=== PATIENT | female | born 1975 | race Caucasian/White ===

== ENCOUNTER 2024-12-31 01:46 | Emergency (ER) | payer OTHER, SELFPAY ==
[2024-12-31 01:50] VITALS: BP 131/78; PULSE 71; TEMP 36.5; O2SAT 100; BMI 27.4
--- NOTE | 2024-12-31 01:59 | ED.SKABFB1 ---
HPI - Skin/Abscess/Foreign Bdy General Chief complaint: Skin/Abscess/Foreign Body Stated complaint: POSS DERMATITIS Time Seen by Provider: 12/31/24 01:56 Source: patient Mode of arrival: walk-in Limitations: no limitations History of Present Illness HPI narrative: presents with urticarial rash. Was seen at Urgent care and prescribed prednisone. States she woke up from sleep with worsening rash. No fever , dyspnea or nausea. now presents to be seen. Has been taking Benadryl also Related Data Home Medications ?Medication ?Instructions ?Recorded ?Confirmed metformin 500 mg tablet,extended 1,000 mg PO BID 12/31/24 12/31/24 release 24 hr prednisone 10 mg tablet mg 12/31/24 Allergies Allergy/AdvReac Type Severity Reaction Status Date / Time latex Allergy Rash Verified 12/31/24 01:56 Review of Systems ROS Status of ROS 10 or more systems reviewed and unremarkable except as noted in history and below PFSH PFSH Social History Little interest or pleasure in doing things: not at all Feeling down, depressed, or hopeless: not at all Exam Constitutional Vital Signs, click to edit/add: Last Vital Signs Temp 97.7 F 12/31/24 01:50 Pulse 71 12/31/24 01:50 Resp 16 12/31/24 01:50 BP 131/78 12/31/24 01:50 Pulse Ox 100 12/31/24 01:50 O2 Del Method Room Air 12/31/24 01:50 Common normals: no apparent distress, average body habitus, oriented x3, no limitations, healthy appearing, alert and well nourished [facility] Common normals: normocephalic and head/scalp atraumatic Eye Common normals: PERRL and EOMs intact bilaterally Respiratory Common normals: normal respiratory effort, no retractions, no use of accessory muscles and clear to auscultation bilaterally Cardio Common normals: regular rate, regular rhythm, S1 normal heart sound and S2 normal heart sound Extremity Common normals: normal to inspection and full ROM Other: urticarial rash on trunk and extremities Neuro Common normals: oriented x3, CN's II-XII intact bilaterally and moves all extremities Psych Appearance: grossly normal Course Vital Signs Vital signs: Vital Signs Temperature 97.7 F 12/31/24 01:50 Pulse Rate 71 12/31/24 01:50 Respiratory Rate 16 12/31/24 01:50 Blood Pressure 131/78 12/31/24 01:50 Pulse Oximetry 100 12/31/24 01:50 Oxygen Delivery Method Room Air 12/31/24 01:50 Temperature 97.7 F 12/31/24 01:50 Pulse Rate 71 12/31/24 01:50 Respiratory Rate 16 12/31/24 01:50 Blood Pressure 131/78 12/31/24 01:50 Pulse Oximetry 100 12/31/24 01:50 Oxygen Delivery Method Room Air 12/31/24 01:50 MDM - Skin/Abscess/Foreign Bdy MDM Narrative Medical decision making narrative: presents with urticarial rash. Diffuse rash. No associated respiratory symptoms. Seen at urgent care and prescribed prednisone which was tapering down. Woke up with rash more diffuse this am. Given injection of Solumedrol IM and a prescription for prednisone 60mg qd. Advised to see her PCP to provide tapering plan of prednisone Discharge Plan Discharge Chief Complaint: Skin/Abscess/Foreign Body Clinical Impression: Urticaria Patient Disposition: Home, Self-Care Prescriptions / Home Meds: No Action metformin 500 mg tablet extended release 24 hr 1,000 mg PO BID prednisone 10 mg tablet Print Language: Vietnamese Instructions: Urticaria (ED) Additional Instructions: follow up with your family doctor within the next 3 days Referrals: Physician,Non-Staff, MD [Primary Care Provider] - 1 week
[2024-12-31] MEDS: METHYLPREDNISOLONE SOD SUCC PF 125 MG/2 ML VIAL IM (02:13)
== END 2024-12-31 02:24 | disposition home or self-care (01) ==
PROVIDERS: Emergency Provider Internal Medicine; PCP Family Medicine
DX: L50.9 Urticaria, unspecified (principal)
CPT/HCPCS: 96372; 99284; J2919

== ENCOUNTER 2025-03-26 06:50 | Outpatient (OUT) | payer OTHER, SELFPAY ==
--- NOTE | 2025-03-26 06:59 | MR_ITS ---
[address] [address] Patient Name: PERLA DRAPER MRN: [id number] date: 1975 Sex: F Assigned Patient Location: MRI Current Patient Location: MRI Accession/Order Number: [id number] Exam Date: 03/26/2025 07:00 Report Date: 03/26/2025 09:00 At the request of: ELLYN MOTA MD Procedure: MR head/brain wo con EXAMINATION: MRI OF THE BRAIN WITHOUT CONTRAST CLINICAL HISTORY: headache R51.9 COMPARISON: None TECHNIQUE: Multiecho, multiplanar imaging of the brain was performed without contrast FINDINGS: No restricted diffusion. Solitary focus of T2 prolongation central stone only noted on the T2 FLAIR images is not reproduced on the T2 images favored to be artifactual. Otherwise the brain parenchyma is unremarkable signal intensity. Ventral and sulci are normal size and configuration for patient's age. No shift midline structure. No basal cisterns are patent. No abnormal GRE signal. Major intracranial intravascular flow voids are preserved. Minor paranasal sinus mucoperiosteal thickening. MR/MR head/brain wo con IMPRESSION: Essentially unremarkable MRI brain performed without contrast. Impression dictated by: Angel Soto M.D. 03/26/2025 9:00 AM Dictation Location: [place] [address] Electronically authenticated by: [id number] Y Date: 03/26/2025 09:00
== END 2025-03-26 06:51 | disposition home or self-care (01) ==
LOC: MRI 06:51
PROVIDERS: PCP Family Medicine; Visit Provider Family Medicine
DX: R51.9 Headache, unspecified (principal); N92.1 Excessive and frequent menstruation with irregular cycle; N95.1 Menopausal and female climacteric states; Z13.29 Encounter for screening for other suspected endocrine disorder
CPT/HCPCS: 36415; 70551; 83001; 84439; 84443

== ENCOUNTER 2025-03-26 06:53 | Outpatient (OUT) | payer OTHER, SELFPAY ==
--- OUTSIDE RECORDS SUMMARY | 2025-03-26 06:56 | XMS_ITS | Clinical Summary ---
Author Organization [facility] Address [address] [place] [address] Care Team Providers Care Center Lead Consultant Name Role Phone Rena Simon MD Primary Care Provider [phone] Fox Mendoza DO Unavailable [phone] Allergies Active Allergy Reactions Criticality Noted Date Comments Latex 10/02/2023 Other Reaction(s): rash Sertraline 10/02/2023 Other Reaction(s): Unknown Reaction Medications montelukast (Singulair) 10 MG tablet Take 10 mg by mouth at bedtime. 3 Active Multiple Vitamins-Minera ls (Centrum Adults) tablet Orally Activ e Trulance tablet tablet Take 1 tablet by mouth in the morning. 3 Active MELATONIN PO Take by mouth. Ac tive azelastine (Astelin) 0.1 % nasal sprayIndication s:Allergic rhinitis due to tree pollen Administer 2 sprays into each nostril in the morning and 2 sprays before bedtime. Use in each nostril as directed. 90 mL 3 4 Active fluticasone (Flonase) 50 MCG/ACT nasal sprayIndication s:Allergic rhinitis due to tree pollen Administer 2 sprays into each nostril Daily Shake gently. Before first use, prime pump. After use, clean tip and replace cap. 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 Irregular menstrual bleeding 12/25/2022 Cyst of ovary 10/23/2012 Encounters Date Type Department Care Team Description 03/10/2025 9:30 AM EDT Office Visit [facility] [address] [phone] Fox Mendoza, Menorrhagia with irregular cycle (Primary Dx); Irregular bleeding; Hx of tubal ligation; Hot flushes, perimenopausal; Thyroid disorder screening 03/10/2025 Travel from Last 3 Months Immunizations Immunization Administration Dates Next Due Tdap 01/08/2015 Family History Medical History Relation Name Comments Diabetes Father Trent Heart disease Father Trent Heart failure Father Trent Hypertension Father Trent Diabetes Mother Lindsey Heart disease Mother Lindsey Hypertension Mother Lindsey Kidney disease Mother Lindsey Relation Name Status Comments Father Trent Mother Lindsey Sister Alive x2 Social History Tobacco Use Types Packs/Day Years Used Date Smoking Tobacco: Never Smokeless Tobacco: Never Tobacco Cessation:Counseling Given: No Alcohol Use Standard Drinks/Week Comments Yes 1 (1 standard drink = 0.6 oz pure alcohol) caffeine intake: 1 cup black tea daily PHQ-2 Answer Date Recorded Patient Health Questionnaire-2 Score 0 11/11/2024 Comments No Sex and Gender Information Value Date Recorded Sex Assigned at Not on file Legal Sex Female 6:54 PM EDT Gender Identity Not on file Sexual Orientation Not on file Last Filed Vital Signs Vital Sign Reading Time Taken Comments Blood Pressure 110/70 03/10/2025 9:45 AM EDT Pulse - - Temperature - - Respiratory Rate - - Oxygen Saturation - - Inhaled Oxygen Concentration - - Weight 75.8 kg (167 lb) 03/10/2025 9:45 AM EDT Height 172.7 cm (5' 8 ) 10/18/2023 9:09 AM EDT Body Mass Index 25.39 10/18/2023 9:09 AM EDT Plan of Treatment Upcoming Encounters Date Type Department Care Team (Late st Contact Info) Description 04/13/2025 11:00 AM EST Ancillary Procedure [facility] [address] [address] 04/13/2025 11:45 AM EST Office Visit [facility] [address] [phone] Fox Mendoza DO [address] [phone] 11/17/2025 1:30 PM EDT Office Visit [facility] [address] [phone] Fox Mendoza DO [address] [facility] D [address] [address] Health Maintenance Due Date Last Done Comments CT Colonography 1975 Colonoscopy 1975 Colorectal Cancer Screening 1975 FIT-DNA 1975 FIT 1975 FOBT 1975 Sigmoidoscopy 1975 HPV/Cotest 2004 Mammogram 05/20/2025 05/20/2024, 12/0 12/2022, 04/25/2018, Additional history exists Cervical Cancer Screening 09/06/2025 Pap Smear 09/06/2025 09/06/2022, 04/02/2019 Influenza Vaccine Completed 03/04/2025, 02/19/2024, 02/24/2023 Procedures Procedure Name Priority Date/Time Associated Diagnosis Comments BI MAMMOGRAM SCREENING TOMOSYNTHESIS BILATERAL Routine 05/20/2024 10:01 AM EST Encounter for screening mammogram for malignant neoplasm of breast THINPREP TIS PAP AND HPV MRNA E6/E7 REFLEX HPV 16,18/45 (10096) Routine 09/06/2022 from Last 3 Months or Most Recently Relevant to Health Maintenance Results * Bilateral screening mammogram with tomosynthesis (05/20/2024 10:01 AM EST) Anatomical Region Laterality Modality Breast Bilateral Mammography 05/20/2024 10:0 1 AM EST Impressions 05/20/2024 10:07 AM EST NO MAMMOGRAPHIC EVIDENCE OF MALIGNANCY. ROUTINE FOLLOW-UP IS RECOMMENDED IN ONE YEAR. RESULT CODE: 2 Benign Findings(s) DENSITY CODE: 3 (approximately 51-75% glandular) FOLLOW UP: 1YR The false-negative rate of mammography is approximately 10-percent. Management of a palpable abnormality must be based on clinical grounds. Patient was entered into a reminder system with a target due date for the next mammogram. Impression dictated by: Kael Ziegler M.D.05/20/2024 10:05 AM Dictation Location: [facility] Transcribed By: [facility] 05/20/24 1005 Dictated By: Kael Ziegler II, MD 05/20/24 1001 Signed By: <Electronically signed by Kael Ziegler II, MD in OV> 05/20/24 1005 Narrative 05/20/2024 10:07 AM EST [facility] [address] [place] [address] [place] [address] Mammography Report Signed Patient: Yvette Garcia MR#: [id number] [birth year] : 1975 Acct:[id number] Age/Sex: 49 / F ADM Date: 05/20/24 Loc: OR Room: Type: [facility] Attending Dr: Referral Self Copies to: MD MARLEY Kerr MONA DO SELF,REFERRAL Ordering Provider: FOX MENDOZA DO Date of Service: 05/20/24 MM/MM screening mammo BI w/CAD: screening CLINICAL DATA: Screening for malignancy. BILATERAL SCREENING MAMMOGRAMS - FULL FIELD DIGITAL WITH TOMOSYNTHESIS AND CAD Tomosynthesis craniocaudal and mediolateral oblique views of both breasts were obtained using low- dose digital technique. Comparison is made to prior studies from 05/17/2023, 05/15/2022, 05/10/2021, and 05/03/2020. This examination was reviewed with the aid of CAD. The breast parenchyma is heterogeneously dense. Benign-appearing calcifications are present. There are no dominant masses, typically malignant calcifications or architectural distortion. There has been no significant interval change. MM/MM screening mammo BI w/CAD Procedure Note Kael Ziegler MD - 05/20/2024 [facility] [address] [place] [address] [place] [address] Mammography Report Signed Patient: Yvette Garcia KMR#: [id number] [birth year] : 1975Acct:[id number] Age/Sex: 49 / FADM Date: 05/20/24 Loc: OR Room:Type: [facility] Attending Dr: Referral Self Copies to: MD MARLEY Kerr MONA DO SELF,REFERRAL Ordering Provider: FOX MENDOZA DO Date of Service: 05/20/24 MM/MM screening mammo BI w/CAD: screening CLINICAL DATA: Screening for malignancy. BILATERAL SCREENING MAMMOGRAMS - FULL FIELD DIGITAL WITH TOMOSYNTHESIS ANDCAD Tomosynthesis craniocaudal and mediolateral oblique views of both breastswere obtained using low- dose digital technique. Comparison is made to prior studies from05/17/2023, 05/15/2022, 05/10/2021, and 05/03/2020. This examination was reviewed with the aid of CAD. The breast parenchyma is heterogeneously dense. Benign-appearingcalcifications are present. There are no dominant masses, typically malignant calcifications orarchitectural distortion. There has been no significant interval change. MM/MM screening mammo BI w/CAD IMPRESSION: NO MAMMOGRAPHIC EVIDENCE OF MALIGNANCY. ROUTINE FOLLOW-UP IS RECOMMENDED IN ONE YEAR. RESULT CODE: 2 Benign Findings(s) DENSITY CODE: 3 (approximately 51-75% glandular) FOLLOW UP: 1YR The false-negative rate of mammography is approximately 10-percent. Management of a palpable abnormality must be based on clinical grounds. Patient was entered into a reminder system with a target due date for thenext mammogram. Impression dictated by: Kael Ziegler M.D.05/20/2024 10:05 AM Dictation Location: [facility] Transcribed By: [facility] 05/20/24 1005 Dictated By: Kael Ziegler II, MD 05/20/24 1001 Signed By: <Electronically signed by Kael Ziegler II, MD inOV> 05/20/24 1005 Fox Tuckeraprcamille DO IMG BI PROCEDURES Final Re sult * THINPREP TIS PAP AND HPV MRNA E6/E7 REFLEX HPV 16,18/45 (66904) (09/06/2022) CLINICAL INFORMATION: None given [facility] LMP: N/A [facility] PRE[facility]. PAP: N/A [facility] PRE[facility]. BX: N/A [facility] SOURCE: Endo/Ectocervix [facility] STATEMENT OF ADEQUACY: SEE COMMENT [facility] Comment: Satisfactory for evaluation. Endocervical/transformation zone component present. INTERPRETATION/R ESULT: Negative for intraepithelial lesion or malignancy. [facility] COMMENT: This Pap test has been evaluated with computer assisted technology. [facility] PROSTHETIST : SEE COMMENT [facility] Comment: [facility] [place], [place](ASCP) CT Screening Location: [place] [address] COMMENT SEE COMMENT [facility] Comment: EXPLANATORY NOTE: The Pap is a screening test for cervical cancer. It is not a diagnostic test and is subject to false negative and false positive results. It is most reliable when a satisfactory sample, regularly obtained, is submitted with relevant clinical findings and history, and when the Pap result is evaluated along with historic and current clinical information. HPV MRNA E6/E7 Not Detected Not Detected [facility] Comment: Methodology: [employer]-Mediated Amplification This assay detects E6/E7 viral messenger RNA (mRNA) from 14 high-risk HPV types (16,18,31,33,35,39,45,51,52,56,58,59,66,68). Cervical sources are required for HPV testing. If a vaginal source from a patient who has had a total hysterectomy with removal of cervix was submitted, please contact the testing laboratory for alternative testing options. For additional information, please refer to http://education.Zipongo.com/faq/SJY153z9 (This link if provided for information/ educational purposes only.) 09/06/2022 Fox Mendoza DO [facility] Final Resu lt [facility] from Last 3 Months or Most Recently Relevant to Health Maintenance Insurance [employer] Care Teams Center Lead Consultant Relationship Specialty Start Date End Date Rena Simon MD [address] [place] [phone] PCP - General Family Medicine 11/11/24 Fox Mendoza DO [address] [place], [place] [address]alex Saavedra. [facility] D [address] [phone] Referring Physician Obstetrics and Gynecology 11/11/24
--- OUTSIDE RECORDS SUMMARY | 2025-03-26 06:56 | XMS_ITS | Clinical Summary ---
Author Organization [facility] Address [address], [address] [place] [address] Care Team Providers Care Java Designer Name Role Phone Marciano Holly DO Primary Care Provider [phone] Social History Tobacco Use Types Packs/Day Years Used Date Smoking Tobacco: Never Assessed Comments Unknown Sex and Gender Information Value Date Recorded Sex Assigned at Not on file Legal Sex Female 8:47 PM EST Gender Identity Not on file Sexual Orientation Not on file Plan of Treatment Not on file Care Teams Java Designer Relationship Specialty Start Date End Date Marciano Holly DO PCP - General 09/16/15
--- OUTSIDE RECORDS SUMMARY | 2025-03-26 06:56 | XMS_ITS | Encounter Summary ---
Author Organization [facility] Address [address] [place] [address] Care Team Providers Care Sandwich Maker Name Role Phone Rena Simon MD Primary Care Provider [phone] Rena Simon MD Primary Care Provider [phone] Coni Mendoza DO Unavailable [phone] Encounter Details Date Type Department Care Team (Late st Contact Info) Description 05/17/2023 Orders Only [facility] [address] [place] [phone] Coni Mendoza DO [address] [phone] Social History Tobacco Use Types Packs/Day Years Used Date Smoking Tobacco: Never Smokeless Tobacco: Never Alcohol Use Standard Drinks/Week Comments Yes 1 (1 standard drink = 0.6 oz pure alcohol) caffeine intake: 1 cup black tea daily Comments Unknown Sex and Gender Information Value Date Recorded Sex Assigned at Not on file Legal Sex Female 6:54 PM EDT Gender Identity Not on file Sexual Orientation Not on file documented as of this encounter Plan of Treatment Upcoming Encounters Date Type Department Care Team (Late st Contact Info) Description 04/13/2025 11:00 AM EST Ancillary Procedure [facility] [address] [place] [address] [address] 04/13/2025 11:45 AM EST Office Visit [facility] [address] [address] Coni Mendoza DO [address] [phone] 11/17/2025 1:30 PM EDT Office Visit [facility] [address] [address] Coni Mendoza DO [address] [facility] D [address] [phone] documented as of this encounter Procedures Procedure Name Priority Date/Time Associated Diagnosis Comments MAMMOGRAM-DIAGNOSTIC* Routine 05/17/2023 2:04 PM EST documented in this encounter Results * MAMMOGRAM-DIAGNOSTIC* (05/17/2023 2:04 PM EST) Anatomical Region Laterality Modality Radiographic Abby ging Coni Mendoza DO IMG XR PROCEDURES Final Re sult documented in this encounter Visit Diagnoses Not on filedocumented in this encounter Care Teams Sandwich Maker Relationship Specialty Start Date End Date Rena Simon MD PCP - General Family Medicine 11/15/22 11/10/24 Rena Simon MD [address] [place] [phone] PCP - General Family Medicine 11/11/24 Coni Mendoza DO [address] [address] Referring Physician Obstetrics and Gynecology 11/11/24 documented as of this encounter
[2025-03-26 09:38] LABS: Thyroid Stimulating Hormone 1.906 uIU/mL (0.358-3.740)
[2025-03-27 08:09] LABS: FSH 30.6 mIU/mL (.)
== END 2025-03-26 06:54 | disposition home or self-care (01) ==
LOC: LAB 06:54
PROVIDERS: PCP Family Medicine; Visit Provider Obstetrics & Gynecology
DX: N92.1 Excessive and frequent menstruation with irregular cycle (principal); N95.1 Menopausal and female climacteric states; Z13.29 Encounter for screening for other suspected endocrine disorder
CPT/HCPCS: 36415; 83001; 84439; 84443

== ENCOUNTER 2025-05-09 16:58 | Emergency (ER) | payer OTHER, SELFPAY ==
--- OUTSIDE RECORDS SUMMARY | 2025-04-13 11:45 | XMS_ITS | Encounter Summary ---
Author Organization [facility] Address [address] [place] [address] Care Team Providers Care Bottle Line Worker Name Role Phone Rena Simon MD Primary Care Provider [phone] Coni Mendoza DO Unavailable [phone] Reason for Visit * ReasonCommentsFollow-upPatient here for a f/up after pelvic U/S d/t heavy periods. LMP 03/19/25 Encounter Details DateTypeDepartmentCare Team (Latest Contact Info)Agdnfhocduf59/03/2025 11:45 AM ESTOffice Visit [facility] [address] [place] [address] [phone] Coni Mendoza DO [address] [address] Encounter to discuss test results (Primary Dx); Menorrhagia with irregular cycle; Uterine leiomyoma, unspecified location; Cysts of both ovaries; Hx of tubal ligation Social History Tobacco UseTypesPacks/DayYears UsedDateSmoking Tobacco: NeverSmokeless Tobacco: NeverAlcohol UseStandard Drinks/WeekCommentsYes1 (1 standard drink = 0.6 oz pure alcohol)caffeine intake: 1 cup black tea dailyPHQ-2AnswerDate RecordedPatient Health Questionnaire-2 [id number] and Gender InformationValueDate RecordedSex Assigned at BirthNot on fileLegal SexFemale 08/23/2022 6:54 PM EDTGender IdentityNot on fileSexual OrientationNot on file documented as of this encounter Last Filed Vital Signs Vital SignReadingTime TakenCommentsBlood Zvznzkys874/7204/13/2025 11:38 AM EST Pulse--Temperature--Respiratory Rate--Oxygen Saturation--Inhaled Oxygen Concentration--Sgiecn95.7 kg (169 lb)04/13/2025 11:38 AM ESTHeight--Body Mass Index25.7010/18/2023 9:09 AM EDTdocumented in this encounter Progress Notes * Coni Mendoza, DO - 04/13/2025 11:45 AM EST Images from the original note were not included. Subjective Yvette Garcia is a 49 y.o. female HPI Chief Complaint Patient presents with Follow-up Patient here for a f/up after pelvic U/S d/t heavy periods. LMP 03/19/25 Pelvic ultrasound revealed: Measurements: Uterus: 9.3 x 4.3 x 6.1 cm Volume: 129.4 cm?? Endometrial thickness: 10.8 mm Right ovary: 2.6 x 2.3 x 2.3 cm Volume: 7.2 cm?? Left ovary: 4.2 x 3.0 x 2.3 cm Volume: 15.3 cm?? Findings: Uterus: The uterus is normal in size and contour with the exception of c/section scar. Position: Anterverted Myometrium: The myometrium is rather inhomogenous in echotexture. Fibroid(s): There is a single subserosal, right, posterior, heterogenous fibroid visualized measuring 2.2 x 1.9 x 2.4 cm. Endometrium: The endometrium appears normal in contour and thickness. Cervix: The cervix appears unremarkable. Right ovary: Visualized Morphology: normal appearing Cyst(s): The right ovary contains a single thin-walled, sonolucent cyst, measuring 1.8 x 1.8 x 1.7 cm. Doppler: power doppler shows ovarian blood profusion Right adnexa: no overt adnexal mass Left ovary: Visualized Morphology: normal appearing Cyst(s): The left ovary contains a single thin-walled, sonolucent cyst, measuring 2.6 x 1.7 x 1.9 cm. Doppler: power doppler shows ovarian blood profusion Left adnexa: no overt adnexal mass [place]: no free fluid Medical History[1] Surgical History[2] Family History[3] Social History[4] OB History Para Term AB Living 3 2 1 2 SAB IAB Ectopic Multiple Live Births 1 # Outcome Date GA Lbr Eris/2nd Weight Sex Type Anes PTL Lv 3 SAB 2 Para 1 Para Allergies[5] Medications Ordered Prior to Encounter[6] Review of Systems All other systems reviewed and are negative. Objective BP 116/72 Wt 169 lb LMP 03/19/2025 BMI 25.70 kg/m?? Physical Exam Constitutional: Appearance: Normal appearance. Neurological: Mental Status: She is alert. Skin: General: Skin is warm and dry. Psychiatric: Mood and Affect: Mood normal. Assessment/Plan 1. Encounter to discuss test results (Primary) Discussed pelvic ultrasound findings. Discussed normal Thyroid stimulating hormone level and darling-menopausal/early menopausal level of FSH. Reassured patient 2. Menorrhagia with irregular cycle Treatment/management options. Patient opted to continue observation at this time. Patient to contact the office with any concerns/questions 3. Uterine leiomyoma, unspecified location 4. Cysts of both ovaries 5. Hx of tubal ligation [1] Past Medical History: Diagnosis Date Allergic rhinitis Breast lump COVID-19 Eczema Encounter for insertion of Mirena IUD 05/19/2015 Fibrocystic breast Head injury 09/2023 fell and hit head on the back- 6 kailyn was inserted History of colonoscopy 2016 negative biopsy History of medical problems enlongated colon Hives Ovarian cyst PONV (postoperative nausea and vomiting) [id number] C section Sinusitis 1989 [2] Past Surgical History: Procedure Laterality Date SECTION, LOW TRANSVERSE x2 (2001, 2005) COLON SURGERY 2016 COLONOSCOPY 2016 ENDOMETRIAL BIOPSY 03/16/2015 Normal EYE SURGERY 2010 IUD INSERTION 05/19/2015 Mirena Insertion TUBAL LIGATION 2005 [3] Family History Problem Relation Name Age of Onset Diabetes Mother Lindsey Hypertension Mother Lindsey Heart disease Mother Lindsey Kidney disease Mother Lindsey Diabetes Father Trent Hypertension Father Trent Heart failure Father Trent Heart disease Father Trent [4] Social History Tobacco Use Smoking status: Never Smokeless tobacco: Never Vaping Use Vaping status: Never Used Substance Use Topics Alcohol use: Yes Alcohol/week: 1.0 standard drink of alcohol Types: 1 Glasses of wine per week Comment: caffeine intake: 1 cup black tea daily Drug use: Not Currently [5] Allergies Allergen Reactions Latex Other Reaction(s): rash Sertraline Other Reaction(s): Unknown Reaction [6] Current Outpatient Medications on File Prior to Visit Medication Sig Dispense Refill azelastine (Astelin) 0.1 % nasal spray Administer 2 sprays into each nostril in the morning and 2 sprays before bedtime. Use in each nostril as directed. 90 mL 3 buPROPion SR (Wellbutrin SR) 100 MG 12 hr tablet TAKE 1 TABLET BY MOUTH TWICE DAILY (titrate TO TWICE DAILY DIRECTED) fluticasone (Flonase) 50 MCG/ACT nasal spray Administer 2 sprays into each nostril Daily Shake gently. Before first use, prime pump. After use, clean tip and replace cap. 48 g 11 GENERIC EXTERNAL MEDICATION Insert 1 suppository into the vagina every 3rd (third) day MELATONIN PO Take by mouth. montelukast (Singulair) 10 MG tablet Take 10 mg by mouth at bedtime. Multiple Vitamins-Minerals (Centrum Adults) tablet Orally Trulance tablet tablet Take 1 tablet by mouth in the morning. No current facility-administered medications on file prior to visit. documented in this encounter Plan of Treatment DateTypeDepartmentCare Team (Latest Contact Info)Cvprjlrwwwz95/01/2025 10:30 AM ESTOffice Visit [facility] [address] [facility] [address] [phone] Coni Mendoza DO [address] [facility] D [address] [phone] 11/17/2025 1:30 PM EDTOffice Visit [facility]OM[facility] [address] [facility] D [address] [phone] Coni Mendoza DO [address] [phone] documented as of this encounter Visit Diagnoses Diagnosis Encounter to discuss test results- Primary Other specified counseling Menorrhagia with irregular cycle Uterine leiomyoma, unspecified location Cysts of both ovaries Other and unspecified ovarian cyst Hx of tubal ligation documented in this encounter Care Teams Team MemberRelationshipSpecialtyStart DateEnd Date Rena Simon MD [address] [place] [phone] PCP - GeneralFamily Medicine11/11/24 Coni Mendoza DO [address] [phone] Referring PhysicianObstetrics and Gynecology11/11/24documented as of this encounter
--- OUTSIDE RECORDS SUMMARY | 2025-05-06 09:09 | XMS_ITS | Continuity of Care Document ---
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 Phone Rena Simon MD Primary Care Provider Viji Yang APRN Attending Provider Rena Simon MD Attending Provider [phone] Coni Mendoza DO Attending Provider Care Teams Patient Care Team Team Status: Active Member Role/Relationship Status Dates Rena Simon MD Primary Care Provider Active Visit Care Team Team Status: Inactive Member Role/Relationship Status Dates Rena Simon MD Primary Care Provider Active Start: February 12, 2025 End: February 12, 2025Amy Marshall ProviderActiveStart: February 12, 2025 End: February 12, 2025 Visit Care Team Team Status: Inactive Member Role/Relationship Status Dates Rena Simon MD Primary Care Provider Active Start: February 17, 2025 End: February 17, 2025Richelle Kerr ProviderActiveStart: February 17, 2025 End: February 17, 2025 Visit Care Team Team Status: Active Member Role/Relationship Status Dates Rena Simon MD Primary Care Provider Active Start: March 26, 2025 Coni Mendoza DOAttraymond ProviderActiveStart: March 26, 2025 Visit Care Team Team Status: Inactive Member Role/Relationship Status Dates Rena Simon MD Primary Care Provider Active Start: May 05, 2025 End: May 05, 2025Viji Normantimbo CRISTYUnapeggypro ProviderActiveStart: May 05, 2025 End: May 05, 2025 Patient Care Team Team Status: Inactive Member Role/Relationship Status Dates Rena Simon MD Primary Care Provider Active Start: May 06, 2025 End: May 06, 2025Rena Simon MDAttraymond ProviderActiveStart: May 06, 2025 End: May 06, 2025 Chief Complaint and Reason for Visit Chief Complaint Admit Date WMN f/u February 12, 2025 8:39am Headache/Congestion/COVID- February 1:25pm abscess May 06, 2025 1:34pm Reason for Visit Admit Date BMI 27.0-27.9,adult February 12, 2025 8:39am Dietary counseling and surveillance Feb 8:39am Hyperlipidemia, unspecified February 8:39am IBS (irritable bowel syndrome) February 12, 2025 8:39am Obesity February 12, 2025 8:39am PCOS (polycystic ovarian syndrome) 2024 8:39am Vitamin D deficiency, unspecified 2024 8:39am Sinusitis, acute maxillary February 1:25pm BMI 27.0-27.9,adult May 05, 2025 1:37pm Dietary counseling and surveillance [facility]2024 1:37pm Hyperlipidemia, unspecified April 1:37pm IBS (irritable bowel syndrome) May 05, 2025 1:37pm Obesity May 05, 2025 1:37pm PCOS (polycystic ovarian syndrome) Novem 2024 1:37pm Vitamin D deficiency, unspecified [facility] 1:37[facility] Allergies, Adverse Reactions, Alerts Allergen Type Severity Reaction Last Updated Verified Status latex Allergy Unknown rash May 06, 2025 1:39pm Yes Active Social History Smoking Status Status Start Date End Date Date of Observa tion Never smoked tobacco (finding) September 09, 2024 8:31am Observation Status Observation Response Date of Response Legal Sex Female (finding) Sex Assigned At BirthFemaleNovember 1974 Family History Relationship Condition Age at Onset Recorded Date/[place] father Family history of other condition Unknown Diabetes mellitusUnknownDeceasedUnknownHypertensionUnknownHeart diseaseUnknown Myocardial infarctionUnknownmotherHypertensionUnknownDeceasedUnknownDiabetes mellitusUnknownHeart diseaseUnknown Problems Active Problems Problem Diagnosis/Recorded Date Onset Date Stat us Screening for colon cancer February 19, 2024 8:18am Unknown Active Varicose veins of bilateral lower extremities with other complications May 20, 2024 11:04am Unknown Active Sinusitis, acute maxillary February 23, 2025 12:07p m Unknown Active Dietary counseling and surveillance September 09, 2024 7: 32am Unknown Active Cough August 26, 2024 9:31am Unknown Acti ve Wellness examination February 19, 2024 3:50pm Unkno wn Active Headache March 09, 2025 7:28am Unknown Active Hyperlipidemia, unspecified September 09, 2024 7:33am Unk nown Active Nasal congestion August 08, 2024 3:04pm Unknown Active PCOS (polycystic ovarian syndrome) February 12, 2025 8:44am Unknown Active BMI 27.0-27.9,adult September 09, 2024 7:32am Unknown Active Vitamin D deficiency, unspecified October 01, 2023 11: 52am Unknown Active IBS (irritable bowel syndrome) October 01, 2023 11:52a m Unknown Active Obesity February 12, 2025 8:45am Unknown A ctive Inactive/Resolved Problems Problem Diagnosis/Recorded Date Onset Date Stat Ankle sprain September 22, 2023 8:55am Unknown Reso lved Influenza A August 08, 2024 3:07pm Unknown R esolved Laceration September 22, 2023 8:55am Unknown Reso lved Removal of kailyn October 02, 2023 9:12am Unknown Resolved Viral URI July 25, 2024 11:07am Unknown Resolved Medications Medication Status Dose Units Route Directions Qty Days Refills S tart Date Stop Date End Date Reason(s) Instructions Adherence Meloxicam 7.5 mg tablet Discontinued 7.5 MG PO Lesy ly 30 2March 2023 12:00amMarch 2023 3:56pmMeloxicam 7.5 mg tablet Discontinued0.ROUTE.QQPYKZM025Slbyg 2023 3:55pmFebruary 2024 2:29pm TAKE 1 TABLET BY MOUTH ONCE DAILYPlecanatide (Trulance) 3 mg tabletDiscontinued3 ZBNUQxoir977Vizotdtf 25th, 2024 4:44pmNovember 2023 4:44pmPlecanatide (Trulance) 3 mg blzyfsZiviwlapaxye4TDQWUrwoq383Tzoiijdm 25th, 2024 4:44pmApril 2024 2:29pmMontelukast 10 mg tabletActive0.ROUTE.CONVYHX152Jwrqkrwj 2024 10:22amTAKE 1 TABLET BY MOUTH ONCE DAILY at bedtimeComplies with drug therapyAmoxicillin-Pot Clavulanate 875-125 mg hlgvkzZarqdyzfeovd6ZAWPMTvvgs noiok822Uftov 2024 11:00pmApril 2024 7:22amPlecanatide (Trulance) 3 mg hjjhadMwrttupfxeqy7ZXDVSmhtj978Qkmip 2024 2:29pmAugust 2024 7:20amPlecanatide (Trulance) 3 mg llgslhBnxopy2DKZHLprst040Vbhszq 2024 7:20amComplies with drug therapyMontelukast 10 mg utevweZxflvfczosjf46INLUZjbbu September 21, 2023 11:00pmFebruary 2024 10:22amPlecanatide (Trulance) 3 mg xttorqJqlktzqwwlzd6SSPFFshcmJrevf 2023 11:00pm[facility]20[facility] 4:44pm Bupropion Hcl 150 mg tablet extended release 24 wlOknbnp378XNFXFnfgh lgpcyye641 May 05, 2025 12:00amComplies with drug therapyAmoxicillin-Pot Clavulanate 875-125 mg hlertgXyvuvqcxwntu7KARZHKhanp hctqt469Xxpttcyes 8th, 2025 11:00pm May 06, 2025 1:39pmFluticasone Propionate (Flonase Allergy Relief) 50 mcg/actuation spray,egniiegsxpVabhhd6GUDOZAKUNCDBSPHGedlxKiiaoezy 28th, 2025 12:00amadminister into each nostrilComplies with drug therapyOseltamivir (Tamiflu) 75 mg mfnbgnpYecfgjdhhoyp32GHZKIhvsw eedzn5386Uxsdcmno 2024 12:00amMarch 2024 3:20pmMelatonin-Pyridoxine (Vit B6) 5-1 mg tablet DiscontinuedTABPOMarch 2024 11:00pmApril 2024 7:23amFreeTextSi tabs at HS Orally Once a day; Note: Source Status: Taking; Provider: Aurora Chase ( )Lactobacillus Combination No.9 (Adult 50 Plus Probiotic) 4 billion cell rhfolygVohomj5803TUR CELLSPODailyMarch 2024 11:00pm administer with a mealComplies with drug therapyMetformin 500 mg tablet extended release 24 wsUeybqibhosus1689AOIPTtpos izwxo2668Xdq 19th, 2025 11:00pmJuly 2024 1:02pmMetformin 500 mg tablet extended release 24 ijOxftffaxjjjg3281FCIL Twice evgzd7219Cson2024 1:02pmSept2024 8:47amBupropion Hcl 100 mg tablet sustained-release 12 oiFptotaflfeql213ASMPDqiui yowfk407Rvkimbmie 3rd, 2025 11:00pmNov2024 2:25pmtitrate to twice daily as instructed Metformin 500 mg tablet extended release 24 dxTwosbs2561RLVYXlwjg muqqr2780 February 12, 2025 8:47amComplies with drug therapyPrednisone 10 mg tablet Zxrsjqujfiyr26UDRUTj Eemarbxa984Ffew 2024 11:00pmSept2024 7:51amsee taper instructions 60mg daily for three days, 40mg daily for three days, 20mg daily for three days, 10mg daily for three daysAmoxicillin-Pot Clavulanate 875-125 mg tablet Pijfedcdsiop8RWYLQVhhfa qslzh537EscjyramMay 06, 2025 2:04pmNovember 2024 2:05pmSulfamethoxazole-Trimethoprim 800-160 mg fzcjvuTpzdpnxwruim9JOHCCOguhu vqifl248XwavomcsMay 06, 2025 12:00amNovember 26th, 2025 2:05pmAmoxicillin-Pot Clavulanate 875-125 mg rpgatmZtiyii8ZZSSYLfxxn emkcp743Suklvted 26th, 2025 2:05pmComplies with drug therapySulfamethoxazole-Trimethoprim 800-160 mg tablet Eluxzz4JAZKNTbiub yupdo613Zzrwnhrv 26th, 2025 2:05pmComplies with drug therapy Immunizations Immunization Event Date Not Given Reason Dose Number Metal Base Blocker Lot Number Reason(s) Given Vaccine Information Statement (VIS) Detail Administration Location [place] [id number] ([facility]) June 14, 2021 Influenza, seasonal, injectable, pfSeptember [id number] [facility] Relevant Diagnostic Tests and/or Laboratory Data Laboratory Results Test Collection Date/Time Result Date/Time Result Interpretation Reference Range Result Comment Performing Site Bedside Hemoglobin A1c February 12, 2025 9:02am Sept ember 2024 9:03am 5.2 % Follicle Stimulating HormoneOct2024 6:44amOctober 2024 6:44am 30.6 mIU/mL.Adult Female Range Follicular phase 3.5 - 12.5 Ovulation phase 4.7 - 21.5 Luteal phase 1.7 - 7.7 Postmenopausal 25.8 - 134.8Performed at: - [facility] [id number] Director: Jorge Lynn PhD, Phone: [phone] ThyroxineOct2024 6:44amOctober 2024 6:44am0.97 ng/dL0.76-1.46Thyroid Stimulating Hormone 3rd GenOctober 2024 6:44amOctober 2024 6:44am1.906 u[iU]/mL0.358-3.740 Vital Signs Vital Reading Result Reference Range Collection Date/Time Height 66.1 [in_i] February 12, 2025 7:88ywUnaawl13.35 kgSeptember 2024 7:47amHeart Rate75 /kzq82-849Bmpgxwiya 4th, 2025 7:47amRespiratory rate18 /xaa82-57Jrdikvrig 4th, 2025 7:47amOxygen saturation by Pulse jkaowiij60 %95-100Sept2024 7:47amBP Ssszwlmz761 mm[Hg]100-140September 2024 7:47amBP Cepkbsofm21 mm[Hg]60-100Sept2024 7:47amBMI (Body Mass Index)27.1 kg/c4Xkrsvkbnz 2024 7:07ljWxfjjt84.5 [in_i]February 17, 2025 12:18hkUczvam06.65 kg February 17, 2025 12:28pmBody Ahzsjgcwvyq31.8 [degF]97.6-99.0Sept2024 12:28pmHeart Rate99 /lgf83-443Valqtrknp 9th, 2025 12:28pmBP Vnkmvggh30 mm[Hg]100-140Sept2024 12:28pmBP Tfuvqxbgv89 mm[Hg]60-100September 2024 12:28pmBMI (Body Mass Index)26.9 kg/k6Dmalpdykn 2024 12:28pm Iyctbp83.26 [in_i]May 05, 2025 1:79xqVnbmxm70.55 kgNov2024 1:39pmHeart Rate94 /jng05-496LkexkfebMay 05, 2025 1:39pmRespiratory rate18 /min 12-24May 05, 2025 1:39pmOxygen saturation by Pulse bywcnevf60 %95-100 May 05, 2025 1:39pmBP Zkfwfhhu133 mm[Hg]100-140Nov2024 1:39pm BP Iwzerygrt52 mm[Hg]60-100Nov2024 1:39pmBMI (Body Mass Index)26.3 kg/g4AudcxukdMay 05, 2025 1:53ugOstfru37.26 [in_i]May 06, 2025 1:39pm Zcxffk13.57 kgNov2024 1:39pmHeart Rate94 /gcz42-176EnsgibynMay 06, 2025 1:39pmRespiratory rate12 /prp23-12Iolaaneh2024 1:39pmOxygen saturation by Pulse %95-100May 06, 2025 1:39pmBMI (Body Mass Index)25.6 kg/t6YxebyhrrMay 06, 2025 1:39pm Advance Directives Advance Directive Response Recorded Date/ Time Advance Directives No October 30 1:33pm Insurance Providers Guarantor Yvette Garcia Address [address] [id number] Info.Home Phone: Coverage Status Update:2024 Payer Group Member ID Coverage Type Subscriber Relationship to Subscriber Effective Date Expiration Date [facility] [place] [facility] [place] [id number] - FAM Id: [id number] K Lucius Id: [id number] [address] [place] [address] [place] [id number] Home Phone: Email: [email or web address] Encounter Location(s) Arrival/Admit Date Discharge/Departure Date Discharge/Departure Disposition Provider(s) Departed Physician/ Provider Office Visit -[facility] February 12, 2025 8:39am February 12, 2025 9:40am Discharged to home care or self care (routine discharge) Viji Yang APRN Departed Physician/ Provider Office Visit -[facility] February 17, 2025 1:25pm February 17, 2025 1:54pm Discharged to home care or self care (routine discharge) Rena Simon MD Non-patient / Non-visit -[facility] 2024 7:44am NIKA Mooreeparted Physician/Provider Office Visit-[facility] 2024 1:37pmMay 05, 2025 2:15pmDischarged to home care or self care (routine discharge)PATSY Marshalleparted Physician/Provider Office Visit-[facility] 2024 1:34pmNov2024 2:08pmDischarged to home care or self care (routine discharge)Rena Simon MD Recent Diagnosis Onset Date Admit Date BMI 27.0-27.9,adult Unknown February 8:39am Dietary counseling and surveillance Unknown February 12, 2025 8:39am Hyperlipidemia, unspecified Unknown Feb 8:39am IBS (irritable bowel syndrome) Unknown , 2025 8:39am Obesity Unknown February 12, 2 025 8:39am PCOS (polycystic ovarian syndrome) Unknown February 12, 2025 8:39am Vitamin D deficiency, unspecified Unknown February 12, 2025 8:39am Sinusitis, acute maxillary Unknown Septe mber 2024 1:25pm BMI 27.0-27.9,adult Unknown April 1:37pm Dietary counseling and surveillance Unknown May 05, 2025 1:37pm Hyperlipidemia, unspecified Unknown Nove mb2024 1:37pm IBS (irritable bowel syndrome) Unknown N ov2024 1:37pm Obesity Unknown May 05, 025 1:37pm PCOS (polycystic ovarian syndrome) Unknown May 05, 2025 1:37pm Vitamin D deficiency, unspecified Unknown May 05, 2025 1:37pm Assessments Diagnosis Onset Date Resolution Status Admit Date BMI 27.0-27.9,adult acuteSept2024 8:39amDietary counseling and surveillanceacuteSept2024 8:39amHyperlipidemia, unspecifiedacuteSeptember 2024 8:39amIBS (irritable bowel syndrome)acuteSept2024 8:39amObesityacuteSeptember 2024 8:39amPCOS (polycystic ovarian syndrome)acuteSept2024 8:39amVitamin D deficiency, unspecifiedacuteSeptember 2024 8:39amSinusitis, acute maxillaryacuteSeptember 2024 1:25pmBMI 27.0-27.9,adultacuteNov2024 1:37pmDietary counseling and surveillanceacuteNov2024 1:37pmHyperlipidemia, unspecifiedacuteNovember 2024 1:37pmIBS (irritable bowel syndrome)acuteNov2024 1:37pmObesityacuteNovember 2024 1:37pmPCOS (polycystic ovarian syndrome)acuteNov2024 1:37pmVitamin D deficiency, unspecifiedacuteNov2024 1:37pm Plan of Treatment Author Viji Yang [facility]2024 2:45pm05/05/2025 presents for weight management follow-up. Reports nutritional effort has been fair since last visit following healthy nutritional changes. Exercise weightlifting and treadmill 2 times per week. Was taking bupropion 100 mg twice daily, sometimes forgetting p.m. dose, she was not clear if it was helping. She felt at times she became more hungry on the medication, when further discussed she was not clear if this was a component of some increased hunger. Denied any side effects. Inquires regarding some facial redness. She mentions lupus and wondered if it could be a component Would like staff to be aware of current DARLING discomfort, seeing primary care tomorrow, [facility] could not get her in till next week. Encouraged if precipitous is worsening ER may be of benefit. Encouraged clean warm soapy bath. 02/12/2025 returns for weight management follow-up. Feels her nutritional estimate is fair since her last visit. She is not logging. She is complaining of stress eating. She is exercising weightlifting treadmill spin or bike or Pilates at least 2 times per week. She is exerting herself. Body composition shows improvement in skeletal muscle mass since September as well as decrease in fat mass although her weight is only down 0.1 pounds. She is having her menstrual cycle today. She is having menses approximately every 3 weeks at this point. She has follow-up with [facility]MENT SPECIAL[facility]. She did have an ophthalmic appointment there were concern for retinal hemorrhage and wanted to rule out diabetes and hypertensive component. Her blood pressure for me today is good. We did do hemoglobin A1c based on verbal history of cystic ovaries on CT that was 5.2% on metformin 1000 mg twice daily this was prescribed for weight management. She is interested in bupropion we will start her on sustained-release version titrating to twice daily and then will do extended release version if this is helpful upon follow- up. 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 She is not interested in injectable medication Her mood today is is good 09/09/2024 presents for initial weight management visit as a 49-year-old female patient of Dr. Rena Simon. Presents for weight management assistance. 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 She feels her weight issues began at age 10. She does report history of eating disorder, she does not elaborate. She reports being overweight at a young age. Her high school graduation weight was 160 pounds her highest non weight 200 pounds. She reports having significant weight loss in 2001 after a using weight watchers she was down to 145 251 pounds. She slowly gained weight after stopping weight watchers. She presents today 871 pounds BMI of 27.5. Does exercise 2-3 times per week on the treadmill and spent a break. She has struggles with her weight related to binge, boredom eating and constant food thoughts and cravings or family weight issues. Her goals for weight management are to increase her energy, feel more confident in her clothing. She lives with her and 19-year-old son, she has a daughter 23 moved out last summer. She does report for heart intermittent palpitations, some anxiety when she is busy at work. Denies chest pain. Reports family history of diabetes, early CVD to her best recollection in her father. She is a non-smoker, she does drink alcohol once per week 1 or 2 drinks. She denies any personal or family history of drug or alcohol addiction. She reports her menses to be regular and normal, she feels that she is close to or in perimenopause. She is not taken medications for weight loss in the past. She is amenable if all if anything is appropriate for her. She is looking for accountability in her program. Her previously participated with Dr. Vann. Had community labs A1c in April 5.6% Highest Weight: 200 lbs Program Starting Date/Weight: 09/09/2024 / 171.0 lbs BMI 27.5 Comorbid hyperlipidemia with high HDL. Perimenopause- Dr Newberry-- seeing next month Current Weight: 164.4 lbs, BMI 35.6 +/-: Down 3.9 lbs since last visit, down 6.6 lbs, down 35.6 high weight. Notable skeletal muscle improvement and fat mass reduction since September, report available upon request equivocal reduction in skeletal muscle mass Baseline body comp date: 10/28/2024January/due again each visit or with precipitous gain or loss Continue metformin 500 mg 2 tabs twice daily Restart bupropion, finish 100 mg twice daily then start 150 mg XL once daily. She is stopped secondary to being unclear if it was working, no side effects. If doing well can consider 300 XL next appointment. A1c today due to ophthalmic appointment, concerns for retinal bleed, she does have history of cystic ovaries on CT scan, family history of PCOS. Call with result, 5.2% which is normal looking for accountability, would be agreeable to medications of appropriate BMI does not support GLP-1 RA at this juncture History of disordered eating, no current signals, some decreased control with stress and busy situations Perimenopause, following up with TREATMENT SPECIALIST due to every 3-week menses, current. Also with uncomfortable darling- abscess Consideration mental health to assure proper goal setting and strategies for success--bupropion benefit Available labs reviewed RD scheduling today, recommend continued engagement DCS 8-10 weeks follow-up starting of bupropion Author Rena [facility] 12:07pmDiscussed diagnosis with patient. Instructed to take ATB as directed and complete entire course even if asymptomatic. OTC Tylenol or ibuprofen for discomfort. Saline nasal spray prn congestion. Flonase nasal spray prn congestion. OTC cough medication prn cough. Push fluids and rest. Cool mist humidifier. Immediate evaluation if worsening symptoms. Patient to notify office should symptoms persist or not improve. Pt verbalizes understanding and agrees with tx plan. Author [facility]iji [facility] 8:55am9/09/2024 returns for weight management follow-up. Feels her nutritional estimate is fair since her last visit. She is not logging. She is complaining of stress eating. She is exercising weightlifting treadmill spin or bike or Pilates at least 2 times per week. She is exerting herself. Body composition shows improvement in skeletal muscle mass since September as well as decrease in fat mass although her weight is only down 0.1 pounds. She is having her menstrual cycle today. She is having menses approximately every 3 weeks at this point. She has follow-up with T[facility]MENT SPECIALIST. She did have an ophthalmic appointment there were concern for retinal hemorrhage and wanted to rule out diabetes and hypertensive component. Her blood pressure for me today is good. We did do hemoglobin A1c based on verbal history of cystic ovaries on CT that was 5.2% on metformin 1000 mg twice daily this was prescribed for weight management. She is interested in bupropion we will start her on sustained-release version titrating to twice daily and then will do extended release version if this is helpful upon follow- up. 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 She is not interested in injectable medication Her mood today is is good 09/09/2024 presents for initial weight management visit as a 49-year-old female patient of Dr. Rena Simon. Presents for weight management assistance. 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 She feels her weight issues began at age 10. She does report history of eating disorder, she does not elaborate. She reports being overweight at a young age. Her high school graduation weight was 160 pounds her highest non weight 200 pounds. She reports having significant weight loss in 2001 after a using weight watchers she was down to 145 251 pounds. She slowly gained weight after stopping weight watchers. She presents today 871 pounds BMI of 27.5. Does exercise 2-3 times per week on the treadmill and spent a break. She has struggles with her weight related to binge, boredom eating and constant food thoughts and cravings or family weight issues. Her goals for weight management are to increase her energy, feel more confident in her clothing. She lives with her and 19-year-old son, she has a daughter 23 moved out last summer. She does report for heart intermittent palpitations, some anxiety when she is busy at work. Denies chest pain. Reports family history of diabetes, early CVD to her best recollection in her father. She is a non-smoker, she does drink alcohol once per week 1 or 2 drinks. She denies any personal or family history of drug or alcohol addiction. She reports her menses to be regular and normal, she feels that she is close to or in perimenopause. She is not taken medications for weight loss in the past. She is amenable if all if anything is appropriate for her. She is looking for accountability in her program. Her previously participated with Dr. Vann. Had community labs A1c in April 5.6% Highest Weight: 200 lbs Program Starting Date/Weight: 09/09/2024 / 171.0 lbs BMI 27.5 Comorbid hyperlipidemia with high HDL. Perimenopause- Dr Newberry-- seeing next month Current Weight: 168.3 lbs current menstrual cycle +/-: down 0.1 lbs since last visit, down 2.7 lbs, down 31.7 high weight. Notable skeletal muscle improvement and fat mass reduction since September, report available upon request Baseline body comp date: 10/28/2024January/due again each visit or with precipitous gain or loss Continue metformin 500 mg 2 tabs twice daily Start bupropion 100 mg sustained-release once daily for a week then increase to twice daily, plan for 150 versus 300 mg at follow-up in approximately 6-week. Call for any toleration issues, worsening mood. A1c today due to ophthalmic appointment, concerns for retinal bleed, she does have history of cystic ovaries on CT scan, family history of PCOS. Call with result, 5.2% which is normal looking for accountability, would be agreeable to medications of appropriate Defers GLP-1 RA History of disordered eating, no current signals, some decreasedcontrol with stress and busy situations Perimenopause, following up with TREATMENT SPECIALIST due to every 3-week menses Consideration mental health to assure proper goal setting and strategies for success Available labs reviewed, ordered vitamin D and B12 with pillars for [address] continue engagement DCS 6-8 weeks follow-up starting of bupropion Future Tests Future scheduled test information is unavailable Pending Tests Pending diagnostic test information is unavailable Future Visits Future appointment information is unavailable Future Procedures Future procedure information is unavailable Future Medications Future medication information is unavailable Patient Instructions Patient instructions are unavailable
--- OUTSIDE RECORDS SUMMARY | 2025-05-06 14:08 | XMS_ITS | Continuity of Care Document ---
Author Organization [facility] Address [address] [place] [address] Phone Care Team Providers Care Bi Lead Name Role Phone Rena Simon MD Primary Care Provider Rena Simon MD Attending Provider Care Teams Patient Care Team Team Status: Active Member Role/Relationship Status Dates Rena Simon MD Primary Care Provider Active Patient Care Team Team Status: Inactive Member Role/Relationship Status Dates Rena Simon MD Primary Care Provider Active Start: May 06, 2025 End: May 06, 2025Rena Simon MDAttending ProviderActiveStart: May 06, 2025 End: May 06, 2025 Chief Complaint and Reason for Visit Chief Complaint Admit Date abscess May 06, 2025 1:34pm Allergies, Adverse Reactions, Alerts Allergen Type Severity [...] 7.5 mg tablet Discontinued 7.5 MG PO Elsy ly 30 2March 2023 12:00amMarch 2023 3:56pmMeloxicam 7.5 mg tablet Discontinued0.ROUTE.SAHMBLC989Jmyfj 2023 3:55pmFebruary 2024 2:29pm TAKE 1 TABLET BY MOUTH ONCE DAILYPlecanatide (Trulance) 3 mg tabletDiscontinued3 NBNWRgckx985Lkrkqinb 2023 4:44pmNov2023 4:44pmPlecanatide (Trulance) 3 mg kvnxkjRswnihnfjwri3QLDHNdvoc981Fcmvoewu 25th, 2024 4:44pmApril 2024 2:29pmMontelukast 10 mg tabletActive0.ROUTE.HZHPWTD718Tpessjay 2024 10:22amTAKE 1 TABLET BY MOUTH ONCE DAILY at bedtimeComplies with drug therapyAmoxicillin-Pot Clavulanate 875-125 mg lodxhxQscatusmtigv8ZUSYGGrhvf iufbz147Tvsan 2024 11:00pmApril 2024 7:22amPlecanatide (Trulance) 3 mg okxoheWpzjexjpniac8DZMKBiucw863Vcphg 2024 2:29pmAugust 2024 7:20amPlecanatide (Trulance) 3 mg bbqzogZsvsyz1KRHEFaxno630Igdsdn 2024 7:20amComplies with drug therapyMontelukast 10 mg xwmvgdSnygfjyoijyx38QNHGXqymq September 21, 2023 11:00pmFebruary 2024 10:22amPlecanatide (Trulance) 3 mg gvwbudYtbwhnywlnnv6BCSRZrpggIvxcb 2023 11:00pmNov2023 4:44pm Bupropion Hcl 150 mg tablet extended release 24 wpGcdkxo894BDBHKlgdi May 05, 2025 12:00amComplies with drug therapyAmoxicillin-Pot Clavulanate 875-125 mg fyojiwBqiacnrsmwjr7HLVTJNoxyt xjebg392Sxtppasro 8th, 2025 11:00pm May 06, 2025 1:39pmFluticasone Propionate (Flonase Allergy Relief) 50 mcg/actuation spray,yexhbaqekpMvfmhw5KFSQAZNKUDFWJWLBzrwsZkaybzcu 2024 12:00amadminister into each nostrilComplies with drug therapyOseltamivir (Tamiflu) 75 mg rmkboloZbxbzbfogoaq65HAGKQgwmi jzffj4744Pjhrxzsj 2024 12:00amMarch 2024 3:20pmMelatonin-Pyridoxine (Vit B6) 5-1 mg tablet DiscontinuedTABPOMarch 2024 11:00pmApril 2024 7:23amFreeTextSi tabs at HS Orally Once a day; Note: Source Status: Taking; Provider: Aurora [facility] ( )Lactobacillus Combination No.9 (Adult 50 Plus Probiotic) 4 billion cell kroohbcCvnyjr5992XIO CELLSPODailyMarch 2024 11:00pm administer with a mealComplies with drug therapyMetformin 500 mg tablet extended release 24 yqKvvltfvzdsta2128QNFBBukeg gcpip9752Uto2024 11:00pmJuly 2024 1:02pmMetformin 500 mg tablet extended release 24 ivAqkdxwoawzku6207NEIL Twice pprjs0159Nisn2024 1:02pmSept2024 8:47amBupropion Hcl 100 mg tablet sustained-release 12 tqXchsbudurynm591WCGIXwvam bgyng287Dhkfwpasw2024 11:00pmMay 05, 2025 2:25pmtitrate to twice daily as instructed Metformin 500 mg tablet extended release 24 nhPllhvk9806IILJTclch zrnvi4468 February 12, 2025 8:47amComplies with drug therapyPrednisone 10 mg tablet Foxfpshtmadr51FAQKSt Jjagffvj901Rujn 19th, 2025 11:00pmSept2024 7:51amsee taper instructions 60mg daily for three days, 40mg daily for three days, 20mg daily for three days, 10mg daily for three daysAmoxicillin-Pot Clavulanate 875-125 mg tablet Tstbnkzyoyio3MNBEIUwtys dbuut306TzsbqfgpMay 06, 2025 2:04pmMay 06, 2025 2:05pmSulfamethoxazole-Trimethoprim 800-160 mg opwaqgIwlmyppgxqoa8EZJIPShrbo mbiul968VbcmecxjMay 06, 2025 12:00amNovember 2024 2:05pmAmoxicillin-Pot Clavulanate 875-125 mg cfknaxKoxomm2RBZDVEwyrp rtksy005FsvcxntiMay 06, 2025 2:05pmComplies with drug therapySulfamethoxazole-Trimethoprim 800-160 mg tablet Fsebpn8UVQSRObief bjagk842Oevofjbh 26th5 2:05pmComplies with drug therapy Immunizations Immunization Event Date Not Given Reason Dose Number Slusher Operator Lot Number Reason(s) Given Vaccine Information Statement (VIS) Detail Administration Location COVID-19 mRNA-1273 ([facility]) June 14, 2021 Influenza, seasonal, injectable, pfSeptember [id number] [facility] Vital Signs Vital Reading Result Reference Range Collection Date/Time Height 66.26 [in_i] May 06, 2025 1:83atXlebln45.57 kgNov2024 1:39pmHeart Rate94 /rkk16-489VichsuaqMay 06, 2025 1:39pmRespiratory rate12 /jbh21-30EeptxbukMay 06, 2025 1:39pmOxygen saturation by Pulse qdhgmraw24 %95-100May 06, 2025 1:39pmBMI (Body Mass Index)25.6 kg/g1NlcrxirrMay 06, 2025 1:39pm Advance Directives Advance Directive Response Recorded Date/ Time Advance Directives No October 30 1:33pm Insurance Providers Guarantor Yvette Garcia Address [address] [place] [phone] Info.Home Phone: Coverage Status Update:2024 Payer Group Member ID Coverage Type Subscriber Relationship to Subscriber Effective Date Expiration Date [facility] [place] [employer]EREK [id number] - FAM Id: [id number] K Lucius Id: [id number] [address] [place] [id number] Home Phone: Email: [email or web address] Encounters Encounter Location(s) Arrival/Admit Date Discharge/Departure Date Discharge/Departure Disposition Provider(s) Departed Physician/ Provider Office Visit -[facility] May 06, 2025 1:34pm May 06, 2025 2:08pm Discharged to home care or self care (routine discharge) Rena Simon MD
[2025-05-09 17:01] VITALS: BP 110/66; PULSE 90; TEMP 37; O2SAT 98; BMI 27.1
[2025-05-09 17:04] VITALS: BP 110/66; PULSE 90; TEMP 37; O2SAT 97; BMI 27.1
--- NOTE | 2025-05-09 17:23 | PC.NURSE ---
large firm area to right labia, no draiange
--- OUTSIDE RECORDS SUMMARY | 2025-05-09 17:35 | XMS_ITS | Encounter Summary ---
Author Organization [facility] Address [address] [place] [address] Care Team Providers Care Php Software Engineer Name Role Phone Rena Simon MD Primary Care Provider [phone] Coni Mendoza DO Unavailable [phone] Encounter Details DateTypeDepartmentCare Team (Latest Contact Info)Wspzfuyfgdy89/24/2025Telephone [facility] [address] [place] [address] [address] Lakia Dailey LPN Social History Tobacco UseTypesPacks/DayYears UsedDateSmoking Tobacco: NeverSmokeless Tobacco: NeverAlcohol UseStandard Drinks/WeekCommentsYes1 (1 standard drink = 0.6 oz pure alcohol)caffeine intake: 1 cup black tea dailyPHQ-2AnswerDate RecordedPatient Health Questionnaire-2 Gznkv900CommentsNoSex and Gender InformationValueDate RecordedSex Assigned at BirthNot on fileLegal SexFemale 08/23/2022 6:54 PM EDTGender IdentityNot on fileSexual OrientationNot on file documented as of this encounter Miscellaneous Notes * Telephone Encounter - Lakia Dailey LPN - 05/04/2025 9:46 AM EST Message was left on Voicemail for patient to discuss Abscess she has noticed . Attempted to contact to schedule. documented in this encounter Plan of Treatment DateTypeDepartmentCare Team (Latest Contact Info)Skxgfiikhsm24/01/2025 10:30 AM ESTOffice Visit [facility] [address] [facility] [address] [phone] Coni Mendoza DO [address] [address] 11/17/2025 1:30 PM EDTOffice Visit [facility] [address] [address] Coni Mendoza DO [address] [phone] documented as of this encounter Visit Diagnoses Not on filedocumented in this encounter Care Teams Team MemberRelationshipSpecialtyStart DateEnd Date Rena Simon MD [address] [place] [id number] PCP - GeneralFamily Medicine11/11/24 Coni Mendoza DO [address] [address] Referring PhysicianObstetrics and Gynecology11/11/24documented as of this encounter
--- OUTSIDE RECORDS SUMMARY | 2025-05-09 17:35 | XMS_ITS | Clinical Summary ---
Author Organization [facility] Address [address] [place] [address] Care Team Providers Care Colored Liquid Plastic Applier Name Role Phone Rena Simon MD Primary Care Provider [phone] Coni Mendoza DO Unavailable [phone] Allergies Active AllergyReactionsCriticalityNoted SugyBztuxcoaBwngm63/23/2024 Other Reaction(s): rash Phfcfwrsqb64/23/2024 Other Reaction(s): Unknown Reaction Medications MedicationSigDispense QuantityRefillsLast FilledStart DateEnd DateStatus montelukast (Singulair) 10 MG tablet Take 10 mg by mouth at bedtime.10/02/2022ctive Multiple Vitamins-Minerals (Centrum Adults) tablet OrallyActive Trulance tablet tablet Take 1 tablet by mouth in the morning.09/06/2022ctive MELATONIN PO Take by mouth.Active azelastine (Astelin) 0.1 % nasal spray Indications:Allergic rhinitis due to tree pollenAdminister 2 sprays into each nostril in the morning and 2 sprays before bedtime. Use in each nostril as directed. 90 mL ctive fluticasone (Flonase) 50 MCG/ACT nasal spray Indications:Allergic rhinitis due to tree pollenAdminister 2 sprays into each nostril Daily Shake gently. Before first use, prime pump. After use, clean tip and replace cap. 48 g 11010/18/2023ctive GENERIC EXTERNAL MEDICATION Insert 1 suppository into the vagina every 3rd (third) dayActive buPROPion SR (Wellbutrin SR) 100 MG 12 hr tablet TAKE 1 TABLET BY MOUTH TWICE DAILY (titrate TO TWICE DAILY DIRECTED) 5Active Active Problems ProblemNoted DateDiagnosed DateBenign lipomatous neoplasm of skin and subcutaneous tissue of trunk12/26/2022Irregular menstrual cowoxlje33/17/2023yst of ovary10/23/2012 Encounters DateTypeDepartmentCare QirgKbpvlrxisyy30/24/2025Telephone [facility] [address] [phone] Lakia Dailey LPN 04/13/2025 11:45 AM ESTOffice Visit KRISTEN Amsterdammilli Phelps [address] [phone] Coni Mendoza DO Encounter to discuss test results (Primary Dx); Menorrhagia with irregular cycle; Uterine leiomyoma, unspecified location; Cysts of both ovaries; Hx of tubal guerusih71/03/2025 11:00 AM ESTAncillary Procedure [facility] [address] [phone] Menorrhagia with irregular cycle; Irregular nqfbdifl35/03/4181Zmmehk40/30/2025 9:30 AM EDTOffice Visit [facility] [place] [facility] [address] [phone] Coni Mendoza DO Menorrhagia with irregular cycle (Primary Dx); Irregular bleeding; Hx of tubal ligation; Hot flushes, perimenopausal; Thyroid disorder uwdmymwtk57/30/2025Travelfrom Last 3 Months Immunizations ImmunizationAdministration DatesNext UgbQizp8701/08/2015 Family History Medical HistoryRelationNameCommentsDiabetesFatherClarenceHeart diseaseFather ClarenceHeart failureFatherClarenceHypertensionFatherClarenceDiabetesMother MargaretHeart diseaseMotherMargaretHypertensionMotherMargaretKidney disease MotherMargaretRelationNameStatusCommentsFatherClarenceDeceasedMotherMargaret DeceasedSisterAlivex2 Social History Tobacco UseTypesPacks/DayYears UsedDateSmoking Tobacco: NeverSmokeless Tobacco: Never Tobacco Cessation:Counseling Given: No Alcohol UseStandard Drinks/WeekCommentsYes1 (1 standard drink = 0.6 oz pure alcohol)caffeine intake: 1 cup black tea dailyPHQ-2AnswerDate RecordedPatient Health Questionnaire-2 Fptpj130CommentsNoSex and Gender InformationValueDate RecordedSex Assigned at BirthNot on fileLegal SexFemale 08/23/2022 6:54 PM EDTGender IdentityNot on fileSexual OrientationNot on file Last Filed Vital Signs Vital SignReadingTime TakenCommentsBlood Gmtngvyf713/7204/13/2025 11:38 AM EST Pulse--Temperature--Respiratory Rate--Oxygen Saturation--Inhaled Oxygen Concentration--Xhkfvp63.7 kg (169 lb)04/13/2025 11:38 AM YROTikhcu203.7 cm (5' 8 )10/18/2023 9:09 AM EDTBody Mass Index25.7010/18/2023 9:09 AM EDT Plan of Treatment DateTypeDepartmentCare Team (Latest Contact Info)Dwnqbbqlesc54/01/2025 10:30 AM ESTOffice Visit KRISTEN GONZALEZ [address] [phone] Coni Mendoza DO [address] [phone] 11/17/2025 1:30 PM EDTOffice Visit KRISTEN GONZALEZ [address] [phone] Coni Mendoza DO [address] [phone] Health MaintenanceDue DateLast DoneCommentsCT Xxfjgwpqqmum1974Colonoscopy 1974Colorectal Cancer Fmuumquft1974FIT-DNA1974FIT1974 FOBT1975 9014Qwqqbumixzhdv1974HPV/Meybgk1204/30/2004COVID-19 Vaccine ( season)501/09/2021, 07/16/2020, 06/18/20202457Mhzhsttvv37/10/2025 05/20/2024, 05/17/2023, 04/25/2018, Additional history existsCervical Cancer Qjotmasnd15/29/2026Pap Smear6009/06/2022, 04/02/2019Influenza Vaccine Mkqaruwtv73/24/2025, 02/19/2024, 02/24/2023neumococcal Vaccine: Pediatrics (0 to 5 Years) and At-Risk Patients (6 to 64 Years)Aged OutNo longer eligible based on patient's age to complete this topic Procedures Procedure NamePriorityDate/TimeAssociated DiagnosisCommentsUS PELVIS KZPUPPETRIQZMburfxc82/03/2025 11:22 AM EST Menorrhagia with irregular cycle Irregular bleeding TSH+FREE C3Jbjpbck05/21/2025 7:34 AM EDT Menorrhagia with irregular cycle Irregular bleeding Hot flushes, perimenopausal Thyroid disorder screening BEQTcodkpw41/21/2025 7:34 AM EDT Menorrhagia with irregular cycle Irregular bleeding Hot flushes, perimenopausal BI MAMMOGRAM SCREENING TOMOSYNTHESIS KTIZTYDKPUrbfdjj05/10/2024 10:01 AM EST Encounter for screening mammogram for malignant neoplasm of breast THINPREP TIS PAP AND HPV MRNA E6/E7 REFLEX HPV 16,18/45 (54993)Kmoyxzc8309/06/2022 from Last 3 Months or Most Recently Relevant to Health Maintenance Results * US pelvis transvaginal (04/13/2025 11:22 AM EST)Anatomical RegionLaterality ModalityPelvisUltrasoundStudy GAStudy DateStudy EDDWorking KELSEY (Source) 04/13/2025Specimen (Source)Anatomical Location / LateralityCollection Method / VolumeCollection TimeReceived Time Narrative 04/26/2025 2:16 PM EST Images from the original result were not included. ?? Obstetrics & Gynecology ? [address] ? [address] ? [address] ?[address], [facility] [place] [address] ? [place] [address] ?[place] [address] ? - - - - - - - - - - - - - - - - - - - - - - - - - - - - - - - - - - - - - - - - - - - - - - - - - - - - - - - - - - - - - - - - - - Pelvic Ultrasound Patient name: Yvette Garcia : 1975 (49 y.o.) Date of exam: 04/13/25 - - - - - - - - - - - - - - - - - - - - - - - - - - - - - - - Indication: menorrhagia with irregular cycle, irregular menstrual bleeding Surgical History: C/S, BTL Method: Transvaginal ultrasound examination View: Sufficient - - - - - - - - - - - - - - - - - - - - - - - - - - - - - - - Measurements: Uterus: 9.3 x 4.3 x 6.1 cm ??Volume: 129.4 cm?? Endometrial thickness: 10.8 mm Right ovary: 2.6 x 2.3 x 2.3 cm ??Volume: 7.2 cm?? Left ovary: 4.2 x 3.0 x 2.3 cm Volume: 15.3 cm?? - - - - - - - - - - - - - - - - - - - - - - - - - - - - - - - Findings: Uterus: The uterus is normal in size and contour with the exception of c/section scar. Position: Anterverted Myometrium: The myometrium is rather inhomogenous in echotexture. Fibroid(s): There is a single subserosal, right, posterior, heterogenous fibroid visualized measuring 2.2 x 1.9 x 2.4 cm. Endometrium: The endometrium appears normal in contour and thickness. Cervix: The cervix appears unremarkable. - - - - - - - - - - - - - - - - - - - - - - - - - - - - - - - Right ovary: Visualized Morphology: normal appearing Cyst(s): The right ovary contains a single thin-walled, sonolucent cyst, measuring 1.8 x 1.8 x 1.7 cm. Doppler: power doppler shows ovarian blood profusion Right adnexa: no overt adnexal mass - - - - - - - - - - - - - - - - - - - - - - - - - - - - - - - Left ovary: Visualized Morphology: normal appearing Cyst(s): The left ovary contains a single thin-walled, sonolucent cyst, measuring 2.6 x 1.7 x 1.9 cm. Doppler: power doppler shows ovarian blood profusion Left adnexa: no overt adnexal mass - - - - - - - - - - - - - - - - - - - - - - - - - - - - - - - Cul de Sac: no free fluid - - - - - - - - - - - - - - - - - - - - - - - - - - - - - - - - - - - - - - - - - - - - - - - - - - - - - - - - - - - - - - - - - - Impression: The uterus is normal in size and contour with the exception of c/section scar. The myometrium is rather inhomogenous in echotexture. There is a single fibroid visualized measuring 2.2 x 1.9 x 2.4 cm. ??The endometrium appears normal in contour and thickness. The right ovary contains a 1.8 x 1.8 x 1.7 cm sonolucent cyst. The left ovary contains a 2.6 x 1.7 x 1.9 cm sonolucent cyst. There is no overt adnexal mass. There is no free fluid visible within the pelvis. - - - - - - - - - - - - - - - - - - - - - - - - - - - - - - - - - - - - - - - - - - - - - - - - - - - - - - - - - - - - - - - - - - Ordering/Reading Provider: Coni Mendoza D.O. ??Accounting Associate: BERTRAM Authorizing ProviderResult TypeResult Maninder Mendoza [facility] PROCEDURESFinal Result * Tsh+free t4 (03/31/2025 7:34 AM EDT)Specimen (Source)Anatomical Location / LateralityCollection Method / VolumeCollection TimeReceived TimeBloodVenous blood specimen / Unknown Narrative Authorizing ProviderResult TypeResult Maninder Mendoza [facility] BLOOD ORDERABLESFinal ResultPerforming OrganizationAddressCity/State/ZIP CodePhone Number EXTERNAL LAB * Follicle stimulating hormone (03/31/2025 7:34 AM EDT)Specimen (Source) Anatomical Location / LateralityCollection Method / VolumeCollection Time Received TimeBloodVenous blood specimen / Unknown Narrative Authorizing ProviderResult TypeResult Maninder Mendoza [facility] BLOOD ORDERABLESFinal ResultPerforming OrganizationAddressCity/State/ZIP CodePhone Number EXTERNAL LAB * Bilateral screening mammogram with tomosynthesis (05/20/2024 10:01 AM EST) Anatomical RegionLateralityModalityBreastBilateralMammographySpecimen (Source) Anatomical Location / LateralityCollection Method / VolumeCollection Time Received Time05/20/2024 10:01 AM EST Impressions 05/20/2024 10:07 AM EST NO MAMMOGRAPHIC EVIDENCE OF MALIGNANCY. ? ROUTINE FOLLOW-UP IS RECOMMENDED IN ONE YEAR. ? RESULT CODE: 2 ? Benign Findings(s) ? DENSITY CODE: 3 (approximately 51-75% glandular) ? FOLLOW UP: 1YR ? The false-negative rate of mammography is approximately 10-percent. ? Management of a palpable abnormality must be based on clinical grounds. ? Patient was entered into a reminder system with a target due date for the next mammogram. ? Impression dictated by: Kael Ziegler M.D.05/20/2024 10:05 AM ? Dictation Location: [facility] ? Transcribed By: ? PWS ?05/20/24 1005 ? Dictated By: ?Kael Ziegler II, MD ?05/20/24 1001 ? Signed By: <Electronically signed by Kael Ziegler II, MD in OV> ? 05/20/24 1005 Narrative 05/20/2024 10:07 AM EST [facility] ?[facility] [place] ?[address] ? [place] [address] ? Mammography Report ? Signed ? Patient: Yvette Garcia ?MR#: [id number] ?? 07 ? : 1975 ?Acct:[id number] ? Age/Sex: 49 / F ?ADM Date: 12/10/24 ? Loc: [place] ?Room: ?Type: REG CLI ?? Attending Dr: Referral Self ?? Copies to: Rena Simon MD ?? CONI MENDOZA DO ?? SELF,REFERRAL ? Ordering Provider: NATAPRNIGHATRA,CONI DO ?? Date of Service: 05/20/24 ?? MM/MM screening mammo BI w/CAD: screening ? CLINICAL DATA: ??Screening for malignancy. ? BILATERAL SCREENING MAMMOGRAMS - FULL FIELD DIGITAL WITH TOMOSYNTHESIS AND CAD ? Tomosynthesis craniocaudal and mediolateral oblique views of both breasts were obtained using low- dose digital technique. ??Comparison is made to prior studies from 05/17/2023, 05/15/2022, 05/10/2021, and 05/03/2020. ??This examination was reviewed with the aid of CAD. ? The breast parenchyma is heterogeneously dense. ??Benign-appearing calcifications are present. There are no dominant masses, typically malignant calcifications or architectural distortion. ??There has been no significant interval change. ? MM/MM screening mammo BI w/CAD ?? Procedure Note Kael Ziegler MD - 05/20/2024 [facility] [place] [address] [place] [address] Mammography Report Signed Patient: Yvette Garcia KMR#: [id number] [birth year] : 1975Acct:[id number] Age/Sex: 49 / FADM Date: 05/20/24 Loc: [place] Room:Type: [facility] Attending Dr: Referral Self Copies to: MD MARLEY Kerr MONA DO SELF,REFERRAL Ordering Provider: CONI MENDOZA DO Date of Service: 05/20/24 MM/MM [...] Kael Ziegler M.D.05/20/2024 10:05 AM Dictation Location: [facility] Transcribed By: [facility] 05/20/24 1005 Dictated By: Kael Ziegler II, MD 05/20/24 1001 Signed By: <Electronically signed by Kael Ziegler II, MD inOV> 05/20/24 1005 Authorizing ProviderResult TypeResult StatusMona J Nataprawira DOIMG BI PROCEDURESFinal Result * THINPREP TIS PAP AND HPV MRNA E6/E7 REFLEX HPV 16,18/45 (02983) (09/06/2022) ComponentValueRef RangeTest MethodAnalysis TimePerformed AtPathologist SignatureCLINICAL INFORMATION:None givenNOMS LEGACY EXTERNAL LABLMP:N/[facility] EXTERNAL LABPREV. PAP:N/[facility] EXTER[facility] LABPREV. BX:N/[facility] LABSOURCE:Endo/EctocervixNOMS LEGACY EXTERNAL LABSTATEMENT OF ADEQUACY:SEE COMMENTNOMS LEGACY EXTERNAL LABComment: Satisfactory for evaluation. Endocervical/transformation zone component present. INTERPRETATION/RESULT:Negative for intraepithelial lesion or malignancy.[facility] EXTER[facility] LABCOMMENT:This Pap test has been evaluated with computer assisted technology.[facility] LABCYTOTECHNOLOGIST:SEE COMMENTNOMS LEGACY EXTERNAL LABComment: [facility], CT(ASCP) CT Screening Location: [address] ??[address] COMMENTSEE COMMENTNOMS LEGACY EXTERNAL LABComment: EXPLANATORY NOTE: The Pap is a screening test for cervical cancer. It is not a diagnostic test and is subject to false negative and false positive results. It is most reliable when a satisfactory sample, regularly obtained, is submitted with relevant clinical findings and history, and when the Pap result is evaluated along with historic and current clinical information. HPV MRNA E6/E7Not DetectedNot DetectedNOMS LEGACY EXTERNAL LABComment: Methodology: [employer]-Mediated Amplification This assay detects E6/E7 viral messenger RNA (mRNA) from 14 high-risk HPV types (16,18,31,33,35,39,45,51,52,56,58,59,66,68). Cervical sources are required for HPV testing. If a vaginal source from a patient who has had a total hysterectomy with removal of cervix was submitted, please contact the testing laboratory for alternative testing options. For additional information, please refer to http://education.Atrenta/faq/VOG935c3 (This link if provided for information/ educational purposes only.) Specimen (Source)Anatomical Location / LateralityCollection Method / Volume Collection TimeReceived Time09/06/2022 Narrative Authorizing ProviderResult TypeResult StatusMona J Nataprcamille DOECW LABSFinal ResultPerforming OrganizationAddressCity/State/ZIP CodePhone Number [facility] from Last 3 Months or Most Recently Relevant to Health Maintenance Insurance Care Teams Team MemberRelationshipSpecialtyStart DateEnd Date Rena Simon MD [address] [place] [id number] PCP - GeneralFamily Medicine11/11/24 Coni Mendoza DO [address] [address] Referring PhysicianObstetrics and Gynecology11/11/24
--- OUTSIDE RECORDS SUMMARY | 2025-05-09 17:35 | XMS_ITS | Clinical Summary ---
Author Organization [employer] [facility] Address [id number] [address] [place] [address] Care Team Providers Care Music Leader Name Role Phone Unavailable Primary Care Provider Unavailabl e Social History Tobacco UseTypesPacks/DayYears UsedDateSmoking Tobacco: Never AssessedChildcare AnswerDate PngdgohqPscqhekuxScfepcn69/12/2019EmploymentAnswerDate Recorded FhrrqtubspGgbyggd67/12/2019CommentsUnknownSex and Gender Information ValueDate RecordedSex Assigned at BirthNot on fileLegal HppBigiix46/01/2015 7:45 PM EDTGender IdentityNot on fileSexual OrientationNot on file Plan of Treatment Not on file Medical Devices Not on file
--- OUTSIDE RECORDS SUMMARY | 2025-05-09 17:35 | XMS_ITS | Clinical Summary ---
Author Organization [facility] Address [address], [address] [place] [address] Care Team Providers Care Corporate Law Specialist Name Role Phone Marciano Holly DO Primary Care Provider [phone] Social History Tobacco UseTypesPacks/DayYears UsedDateSmoking Tobacco: Never Assessed CommentsUnknownSex and Gender InformationValueDate RecordedSex Assigned at Not on fileLegal WwrUfzrxf97/10/2013 8:47 PM ESTGender IdentityNot on fileSexual OrientationNot on file Plan of Treatment Not on file Care Teams Team MemberRelationshipSpecialtyStart DateEnd Date Marciano Holly DO [facility]09/16/15
[2025-05-09] MEDS: LIDOCAINE HCL 1% 100 MG/10 ML MDV INJ (17:44)
--- NOTE | 2025-05-09 17:47 | PC.NURSE ---
I&D attempted with 11 blade and sterile technique no drainage obtained. area left open pads for dressing provided and pt to continue taking ATB's prescribed by PCP d/t procedure in ER.
--- NOTE | 2025-05-09 17:56 | ED.GENADUL1 ---
HPI HPI - General Adult General Chief complaint: Skin/Abscess/Foreign Body Stated complaint: POSS ABSCESS Time Seen by Provider: 05/09/25 17:08 Source: patient Mode of arrival: walk-in History of Present Illness HPI narrative: Patient is a 50-year-old female that presents with complaints of large painful bump on her right labia. She started to noticed this Sunday and saw her PCP Sunday and was placed on Augmentin and Bactrim. She denies any fever, night sweats, or chills. 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 She has not noticed any drainage but notes she has been on her period, that has been irregular. Related Data Home Medications ?Medication ?Instructions ?Recorded ?Confirmed amoxicillin 875 mg-potassium 1 tab PO BID 05/09/25 05/09/25 clavulanate 125 mg tablet bupropion HCl 150 mg 24 hr tablet, 150 mg PO QAM 05/09/25 05/09/25 extended release montelukast 10 mg tablet 10 mg PO QPM 05/09/25 05/09/25 plecanatide 3 mg tablet (Trulance) 3 mg PO DAILY 05/09/25 05/09/25 sulfamethoxazole 800 1 tab PO BID 05/09/25 05/09/25 mg-trimethoprim 160 mg tablet Allergies Allergy/AdvReac Type Severity Reaction Status Date / Time latex Allergy Rash Verified 12/31/24 01:56 Opioid HPI Opioid Management Most Recent Opioid Data: Last Pain Scale 10 12/31/24, 01:59 Review of Systems ROS Status of ROS 10 or more systems reviewed and unremarkable except as noted in history and below PFSH PFSH Social History Little interest or pleasure in doing things: not at all Feeling down, depressed, or hopeless: not at all Exam Narrative Exam Narrative: General: No distress, age-appropriate Skin: Warm, dry, no pallor. No rash. Head: Normocephalic, atraumatic. Neck: Supple, non-tender. Eye: Pupils are equal, round and EOMI. No scleral icterus. Ears, Nose, Mouth, and Throat: No nasal mucosal hypertrophy. Oral mucosa is moist, no posterior oropharynx erythema, uvula is mid-line Cardiovascular: Regular Rate and Rhythm without murmur, gallop or rub. Respiratory: No accessory muscle use or respiratory distress. Lungs are clear to auscultation, no wheezing, rales or rhonchi Chest Wall: no tenderness Back: No midline thoracic or lumbar vertebral tenderness. Musculoskeletal: Full ROM of all extremities, no calf or popliteal tenderness Neurological: A&O x4. No cranial nerve dysfunction observed. No truncal ataxia. Moves all extremities. Sensation intact. Psychiatric: Cooperative and interactive. Normal mood and affect. Constitutional Vital Signs, click to edit/add: Last Vital Signs Temp 98.6 F 05/09/25 17:04 Pulse 90 05/09/25 17:04 Resp 18 05/09/25 17:04 BP 110/66 05/09/25 17:04 Pulse Ox 97 05/09/25 17:04 O2 Del Method Room Air 05/09/25 17:04 External Female Exam: normal appearance of the urethra, Bartholin's cyst Bartholin's cyst laterality: right and externally tender Course Vital Signs Vital signs: Vital Signs Temperature 98.6 F 05/09/25 17:01 Pulse Rate 90 05/09/25 17:01 Respiratory Rate 18 05/09/25 17:01 Blood Pressure 110/66 05/09/25 17:01 Pulse Oximetry 98 05/09/25 17:01 Oxygen Delivery Method Room Air 05/09/25 17:01 Temperature 98.6 F 05/09/25 17:04 Pulse Rate 90 05/09/25 17:04 Respiratory Rate 18 05/09/25 17:04 Blood Pressure 110/66 05/09/25 17:04 Pulse Oximetry 97 05/09/25 17:04 Oxygen Delivery Method Room Air 05/09/25 17:04 Medical Decision Making [facility] Narrative Medical decision making narrative: The patient is a 50-year-old female presenting with a large, painful right labial mass. Vitals are hemodynamically stable here and patient is afebrile. There is no erythema of the right labia majora. She has been on Augmentin and Bactrim since evaluation by her PCP Sunday. I attempted I&D, yielding only a small amount of blood with no purulent drainage. She denies fever, chills, or systemic symptoms. Given the absence of significant drainage and persistent pain, differential includes Bartholin?s cyst or abscess, vulvar hematoma, or other vulvar lesions. Pain is affecting mobility and daily activities. The patient will be referred to gynecology for further evaluation and definitive management. Wound care instructions were provided following attempted I&D, and she will continue her current antibiotic regimen. Close follow-up is advised to monitor for worsening pain, increasing swelling, or signs of systemic infection. Differential Diagnosis Differential Diagnosis: Bartholin's cyst/abscess, vulvar lesion Discharge Plan Discharge Chief Complaint: Skin/Abscess/Foreign Body Clinical Impression: Bartholin cyst Patient Disposition: Home, Self-Care Time of Disposition Decision: 17:53 Condition: Good Mode of Transportation: Private Vehicle Prescriptions / Home Meds: No Action amoxicillin-pot clavulanate 875-125 mg tablet 1 tab PO BID bupropion HCl 150 mg tablet extended release 24 hr 150 mg PO QAM montelukast 10 mg tablet 10 mg PO QPM Trulance 3 mg tablet 3 mg PO DAILY sulfamethoxazole-trimethoprim 800-160 mg tablet 1 tab PO BID Print Language: Trinidadian Instructions: Bartholin Cyst (ED) Additional Instructions: Follow up with your GYNO as discussed. Keep area clean and dry for 24-48 hrs. Continue Antibiotics as discussed and return to ER for any problems or concerns. Referrals: Rena Simon MD [Primary Care Provider, Family Practice] - 1 week [facility] [Physician, Unknown] - As soon as possible Referral Note: Call for follow up as soon as possible. Discharge Date/Time: 05/09/25 18:06 Procedures ED ID Incision & Drainage I&D Type: abcess Site: bartholin's gland Side (if applicable): right Sedation/analgesia: none Anesthetic used: lidocaine 1% Technique: incised with #11 blade Amount of fluid (mL): 1 Irrigation: Yes Packing used: none
== END 2025-05-09 18:06 | disposition home or self-care (01) ==
PROVIDERS: Emergency Provider Emergency Medicine; PCP Family Medicine
DX: N75.0 Cyst of Bartholin's gland (principal)
CPT/HCPCS: 56420; 99284